=== PATIENT | female | born 1965 | race African-American/Black ===

== ENCOUNTER 2018-09-15 16:33 | Emergency (ER) | payer MEDICARE, MEDICAID ==
[2018-09-15 17:33] VITALS: BP 156/73
--- NOTE | 2018-09-15 17:46 | UC ---
Skin Complaint HPI - HPI Summary HPI Summary: Pt reports a skin rash taht is often itchy, leaves dark circles and sometimes areas open up and they are dry. she thinks it is related to a mold infection she had approx 2 yrs ago in her hip. This rash has been there for a few yrs but this is the worst it has been. Also reports a bump in her vaginal area that is a bit tender. she is unsure if this is related to rash. denies vaginal discharge, abd pain blisters. - History of Current Complaint Chief Complaint: UCSkin Time Seen by Provider: 09/15/18 17:40 Stated Complaint: RASH Hx Obtained From: Patient Onset/Duration: Gradual Onset Pain Intensity: 9 Pain Scale Used: 0-10 Numeric Location: Diffuse, Generalized Character: Pruritus Aggravating Factor(s): Nothing Alleviating Factor(s): Cold - Allergy/Home Medications Allergies/Adverse Reactions: Allergies Allergy/AdvReac Type Severity Reaction Status Date / Time aspirin Allergy Rash Verified 09/15/18 17:27 cefazolin Allergy Difficulty Verified 09/15/18 17:27 Breathing PMH/Surg Hx/FS Hx/Imm Hx - Additional Past Medical History Additional PMH: hx of cocaine + UDS Previously Healthy: No Endocrine History: Diabetes Cardiovascular History: Hypertension - Surgical History Surgical History: Yes Surgery Procedure, Year, and Place: Facial repair, dental work. tubal ligation - Family History Known Family History: Positive: Hypertension, Diabetes - Social History Alcohol Use: Occasionally Substance Use Type: None Smoking Status (MU): Current Every Day Smoker Type: Cigarettes Amount Used/How Often: 1 pack over 1 1/2 weeks - Immunization History Most Recent Influenza Vaccination: Unknown Most Recent Pneumonia Vaccination: Never Review of Systems All Other Systems Reviewed And Are Negative: Yes Constitutional: Negative: Fever, Chills, Fatigue Skin: Positive: Other - rash w/ pruritus, scabs. Negative: Rash, Bruising ENT: Negative: Sore Throat Respiratory: Positive: Negative Cardiovascular: Positive: Negative Gastrointestinal: Negative: Abdominal Pain Genitourinary: Positive: Vaginal/Penile Pain. Negative: Dysuria Neurovascular: Negative: Decreased Sensation Neurological: Negative: Headache, Weakness Physical Exam Triage Information Reviewed: Yes Appearance: Well-Appearing Vital Signs: Initial Vital Signs Temp 98.7 F 09/15/18 17:28 Pulse 78 09/15/18 17:28 Resp 18 09/15/18 17:28 BP 156/73 09/15/18 17:28 Pulse Ox 100 09/15/18 17:28 Vital Signs Reviewed: Yes Eyes: Positive: Conjunctiva Clear ENT: Positive: Pharynx normal, TMs normal Neck: Positive: Supple, Nontender, No Lymphadenopathy. Negative: Nuchal Rigidity Respiratory Exam: Normal Cardiovascular Exam: Normal Pelvic Exam: Positive: Other - small cystic soft area in R inner labia, somewhat tender Neurological: Positive: Alert, Other: - unclear thoughts Skin: Positive: Significant Lesion(s) - hyperpigmented circular lesions throughout entire body, diff. stages of healing. there were some that were scabbed over but no active open areas. Course/Dx - Course Course Of Treatment: Rash throughout body that resembes a diabetic-related chronic condition as the lesions were in diff. stages of healing although based on my review of her d/c summary and what she was reporting in relation to mold being the cause there may be an element of drug use that is contributing to her skin rash. Of note she was + for cocaine in 2017. I was concerned enough to call her pcp's office after hours at [facility]; spoke to NURY UGARTE NP who stated that although there was no hx of drug use in their records she has had several skin/ staph infections. Rash today appeared to be excoriated which can cause the scarring as well. I recommended some blood tests including HIV-pt declined and insists it is related to the black mold. When I reviewed her infxn of her hip there was no mention of being assoc. w/ black mold. I strongly recommended close f/u w/ her pcp to fully evalaute her-she stated she would think about it. Bartholins Cyst R side; small. ADvised to do SITZ bath twice a day for a week. - Differential Diagnoses - Skin Complaint Differential Diagnoses: Diabetes, Drug Rash, Drug Intoxication, Other - Diagnoses Provider Diagnosis: Diabetic dermopathy, Bartholin cyst Discharge - Sign-Out/Discharge Documenting (check all that apply): Patient Departure All imaging exams completed and their final reports reviewed: No Studies - Discharge Plan Condition: Good Disposition: HOME Patient Education Materials: Bartholin Cyst (ED), Chronic Wounds (ED) Referrals: Gabriel ESTRADA,Rome Arndt [Primary Care Provider] - Additional Instructions: PLEASE FOLLOW UP WITH YOUR PRIMARY CARE PROVIDER FOR CHRONIC SKIN ISSUES. - Billing Disposition and Condition Condition: GOOD Disposition: Home
== END 2018-09-15 18:40 | disposition home or self-care (01) ==
LOC: UCEAST 16:33
DX: E11.628 Type 2 diabetes mellitus with other skin complications (principal); L98.8 Other specified disorders of the skin and subcutaneous tissue; N75.0 Cyst of Bartholin's gland; F17.210 Nicotine dependence, cigarettes, uncomplicated; I10 Essential (primary) hypertension
CPT/HCPCS: 99211; G0463